=== PATIENT | male | born 1940 | race Caucasian/White ===

== ENCOUNTER → 2020-04-13 09:41 | Outpatient (BNVA) | payer MEDICARE, SELFPAY | PROVIDERS: Visit Provider Orthopaedic Surgery | DX: M65.30 Trigger finger, unspecified finger (principal) | CPT/HCPCS: 87635 ==

== ENCOUNTER 2020-04-19 07:53 | Day surgery (SDC) | payer MEDICARE, SELFPAY ==
[2020-04-18 13:28] VITALS: BMI 25.1
[2020-04-19 08:09] VITALS: BP 119/67; PULSE 77; RESP 18; TEMP 37.1; O2SAT 98
[2020-04-19 08:28] LABS: Glucose Point of Care 143 mg/dL (70-110)
[2020-04-19] MEDS: sodium chloride 0.9% 1,000 ML 30 ML IV (08:29)
--- NOTE | 2020-04-19 09:46 | ANES.PREANE2 ---
Pre-Anesthetic Assessment Pre-Anesthetic Assessment: Height/Weight: Height 1.75 m Weight 77.111 kg Temp Pulse Resp BP Pulse Ox 98.7 F 77 18 119/67 98 04/19/20 08:09 04/19/20 08:09 04/19/20 08:09 04/19/20 08:09 04/19/20 08:09 Preop Diagnosis: Trigger finger right index and long fingers Proposed Procedure: Operation Date: 04/19/20 09:50 Proposed Procedures p Right index and long finger trigger digit release 49991 M65.30(Right) - Gabino Quintero MD Was Beta Nuris taken within 24 hours: Yes Last intake: Intake Last Liquid Date 04/18/20 Last Liquid Time 18:00 Last Solid Date 04/18/20 Last Solid Time 18:00 Social: Social History: No alcohol and No tobacco Exam: Pre-Anes Outpt Exam: alert, oriented x 3, clear to auscultation bilaterally and regular rate & rhythm Airway: Submandibular: WNL Cervical ROM: WNL MP: 2 Dentition: Full CV/HEM: CV/HEM: CAD and HTN Anesthetic Plan: ASA status: 3 Anesthesia: MAC and Regional (specify below) (Ella tomlinson) Risk of > 500 ml blood loss (7ml/kg in children): No Meds/Allergies Current Medications: Current Medications Generic Name Dose Route Start Last Admin Trade Name Freq PRN Reason Stop Dose Admin Sodium Chloride 1,000 mls @ 30 ml s/hr 04/19/20 08:00 04/19/20 08:29 Sodium Chloride 0.9% IV 04/20/20 07:59 30 mls/hr .Q24H MARIUM Administration PFSH Anesthesia PFSH: Social History Smoking and tobacco status: never smoked Alcohol intake: never Data Anesthesia Other Labs: Laboratory Results - last 48 hr 04/19/20 08:25 POC Glucose 143 H Cardiac Studies: No Data to Display
--- NOTE | 2020-04-19 11:08 | W.PM.OPSUD ---
Surgery/Procedure H&P Update DATE OF PROCEDURE: April 19, 2020 DATE H&P PERFORMED: 04/10/20 PREOP DIAGNOSIS: Trigger finger right index and long fingers PLANNED PROCEDURE: Operation Date: 04/19/20 09:50 Proposed Procedures p Right index and long finger trigger digit release [id number] M65.30(Right) - Gabino Quintero MD
[2020-04-19 11:58] VITALS: BP 112/66; PULSE 76; RESP 16; TEMP 36.1; O2SAT 100
--- NOTE | 2020-04-19 12:00 | PM.OP ---
Operative Report Date of procedure: April 19, 2020 Pre-op Diagnosis: Trigger finger right index and long fingers Post-op diagnosis: same Post-op Findings: Same Procedure Done: Right index and right long trigger finger release Pathology: none sent Surgeon: Gabino Quintero Anesthesia: Nerve Block (Cano Martin Pena block) Estimated blood loss (mL): 2 Tourniquet time (min): 20 Findings: Thickening and degeneration was seen about the A1 sam of the index finger. No particular abnormalities were identified about the long finger A1 sam. Condition: stable Disposition: same day Procedure: The patient's hand was prepped in the usual fashion. A timeout was performed. A transverse incision was made over the right long finger at the level of a 1 sam in the palm over a distance of approximately a centimeter and a half. Under loupe magnification blunt dissection was accomplished down to the A1 sam. With adequate visualization a scalpel was used to divide the central 8 mm of that structure. Blunt scissors were then used to extend the release approximately 5 mm proximally and 5 mm distally. nsverse incision was made over the index long finger at the level of a 1 sam in the palm over a distance of approximately a centimeter and a half. Under loupe magnification blunt dissection was accomplished down to the A1 sam. With adequate visualization a scalpel was used to divide the central 8 mm of that structure. Blunt scissors were then used to extend the release approximately 5 mm proximally and 5 mm distally. Tendons were pulled the road and inspected to assure there health. Skin edges were infiltrated with 4 cc of 0.5%n Marcaine over each incision.. The skin edges were closed with 3-0 Prolene compressive dressings were applied.
[2020-04-19 12:30] VITALS: BP 123/76; PULSE 71; RESP 18; O2SAT 98
--- NOTE | 2020-04-19 16:53 | ANE.PACU2 ---
Inpatient post-anesthesia follow up: Airway intact: Yes Vital signs: Temperature 97 F Pulse Rate 71 Respiratory Rate 18 Blood Pressure 123/76 Pulse Oximetry 98 Oxygen Delivery Me thod Room Air Oxygen Flow Rate Fraction of Inspir ed Oxygen Hydration adequate: Yes Nausea and vomiting: No Pain level: 1 Mental status: Baseline
== END 2020-04-19 12:37 | disposition home or self-care (01) ==
PROVIDERS: Visit Provider Orthopaedic Surgery
PROC: (CPT 26055; principal; 2020-04-19 09:50)
DX: M65.321 Trigger finger, right index finger (principal); M65.331 Trigger finger, right middle finger; I25.10 Atherosclerotic heart disease of native coronary artery without angina pectoris; I10 Essential (primary) hypertension
CPT/HCPCS: 26055 ×2; 12345; 36416; 82962; J0690; J3010; J3490; J7030

== ENCOUNTER 2021-08-29 16:57 | Emergency (ER) | payer MEDICARE, SELFPAY ==
[2021-08-29 17:05] VITALS: BP 127/66; PULSE 78; RESP 14; TEMP 36.8; O2SAT 97
--- NOTE | 2021-08-29 17:20 | USR_ITS ---
PROCEDURE INFORMATION: Exam: US Abdomen, Limited; Right Upper Quadrant Exam date and time: 08/29/2021 5:39 PM Age: 81 years old Clinical indication: Abdominal pain; Additional info: Abnormal imaging TECHNIQUE: Imaging protocol: Real time ultrasound of the abdomen with image documentation. Limited exam focused on the right upper quadrant. COMPARISON: CT abdomen pelvis w con* [id number] 08/29/2021 12:18 PM FINDINGS: Liver: Liver is normal size and shows normal uniform echogenicity. There is no focal abnormality within the liver. Gallbladder: There are multiple gallstones in the gallbladder. There is no gallbladder wall thickening or pericholecystic fluid. Gallbladder wall measures 2 mm in thickness. Biliary ducts: Common bile duct measures 6 mm. Pancreas: Visualized portions of the pancreas are unremarkable. Right kidney: Right kidney is normal size with normal cortical thickness and echogenicity. There is no hydronephrosis or focal abnormality identified. Right kidney measures 4.7 x 5.6 x 11.0 cm. Aorta: Abdominal aorta has a normal diameter without evidence of aneurysm. Inferior vena cava: IVC is unremarkable. Portal venous: Flow in the portal vein is in the normal direction. US/US gall bladder [id number] IMPRESSION: Cholelithiasis
[2021-08-29 18:42] LABS: Basophils % 0.3 %; Eosinophils # 0.2 10^3/uL (0.0-0.8); Eosinophils % 1.9 %; Hematocrit 44.8 % (42.0-52.0); Hemoglobin 14.9 g/dL (11.7-16.6); Lymphocytes # 0.4 10^3/uL (0.8-4.8); Lymphocytes % 4.8 %; Mean Corpuscular HGB Conc 33.3 g/dL (30.0-36.0); Mean Corpuscular Hemoglobin 30.8 pg (28.0-34.0); Mean Corpuscular Volume 92.6 fl (80-94); Mean Platelet Volume 9.2 fL (7.4-10.4); Monocytes # 0.3 10^3/uL (0.2-0.9); Monocytes % 3.6 %; Neutrophils # 8.22 10^3/uL (1.8-7.7); Neutrophils % 88.9 %; Nucleated Red Blood Cells % 0 %; Platelet Count 154 10^3/cmm (130-400); Red Blood Count 4.84 10^6/uL (4.1-5.3); Red Cell Distribution Width 12.5 % (12.1-15.1); White Blood Count 9.3 10^3/uL (4.0-10.0)
[2021-08-29 19:30] LABS: Alanine Aminotransferase 180 U/L (0-41); Albumin Level 4.4 g/dL (3.5-5.2); Alkaline Phosphatase 116 IU/L (40-130); Aspartate Amino Transferase 35 U/L (0-40); Blood Urea Nitrogen 35 mg/dL (8-23); Calcium 8.9 mg/dL (8.5-10.5); Carbon Dioxide 26 mmol/L (22-29); Chloride 96 mmol/L (98-107); Globulin 2.9 g/dL (1.3-4.6); Glucose 124 mg/dL (65-115); Lipase 42 U/L (13-60); Osmolality Calculated 291 mOsm/kg (285-295); Sodium 136 mmol/L (136-145); Total Bilirubin 1.4 mg/dL (0.15-1.2); Total Protein 7.3 g/dL (6.6-8.7)
[2021-08-29 19:57] VITALS: BP 156/56; PULSE 68; O2SAT 95
--- NOTE | 2021-08-29 20:02 | ED_ITS ---
HPI - Abdominal Pain General: Chief Complaint: Abdominal Pain Stated Complaint: abd pain Time Seen by Provider: 08/29/21 20:02 History of Present Illness: Patient on Thursday had some onset of severe abdominal pain radiating to his back. Patient had persistent pain and was seen at his primary care office in [place] in which they took blood work and a CT scan. After having the blood work and CT scan done yesterday they contacted him today recommending he be evaluated in the ER for further treatment and possible removal of the gallbladder. Review of the records it was noted patient's AST and ALT were in the 500s. Bilirubin was elevated. CT scan was not available for review. Patient here appears nontoxic. Patient appeared in no pain at this time. Patient reports pain is improved over the last 2 days. Associated Symptoms: Reports nausea Review of Systems General: Reports: 10 or more systems reviewed and unremarkable except in HPI and below Card: Denies: chest pain Resp: Denies: dyspnea GI: Reports: abdominal pain and nausea Skin/Breast: Denies: rash PFSH ED PFSH: Social History Smoking and tobacco status: never smoked Alcohol intake: never Physical Exam Const: COMMON NORMALS: alert HENMT: COMMON NORMALS: normocephalic HEAD & SCALP: normocephalic Neck/C-Spine: COMMON NORMALS: full ROM Resp: COMMON NORMALS: normal respiratory effort and clear to auscultation bilaterally AUSCULTATION: clear to auscultation bilaterally Cardio: COMMON NORMALS: regular rate RATE: regular rate GI: COMMON NORMALS: Soft to palpation AUSCULTATION: Yes normoactive bowel sounds PALPATION: Yes Soft to palpation and No Tenderness to palpation present (GI) Extremity: COMMON NORMALS: normal to inspection Neuro: SENSORIUM/ORIENTATION: Yes alert Skin: COMMON NORMALS: no rashes or lesions noted GENERAL SKIN EXAM: no rashes or lesions noted Course Vital Signs: Vital signs: Vital Signs Temperature 98.3 F 08/29/21 17:05 Pulse Rate 78 08/29/21 17:05 Respiratory Rate 14 08/29/21 17:05 Blood Pressure 127/66 08/29/21 17:05 Pulse Oximetry 97 08/29/21 17:05 MDM - Abdominal Pain Medical Decision Making Patient presents today for concerns of abnormal labs and x-rays that were done at outpatient facility. On exam patient is in no pain. Abdomen soft and nontender. Bowel sounds are present. Skin is warm and dry. Vital signs are normal. Differential diagnosis includes cholecystitis, cholelithiasis, pancreatitis. Laboratory values today were unremarkable. Patient did have a mild bump in his bilirubin and his alkaline phosphatase was elevated. Ultrasound of the gallbladder noted gallstones without any signs of cholecystitis or obstruction. I believe patient probably had passed a gallstone which caused his brief elevation in his white count and liver enzymes. I recommended follow-up with surgery for further evaluation and treatment. Patient and his said that they would follow-up with [facility] in [place] through their primary care. Reviewed recommendations for need for return to the ER with patient who reported understanding. Lab Data : 08/29/21 18:30 08/29/21 18:30 Labs/Radiology: Radiology Impressions Gallbladder Ultrasound 08/29/21 17:20 IMPRESSION: Cholelithiasis Laboratory Results WBC 9.3 10^3/uL (4.0-10.0) 08/29/21 18:30 RBC 4.84 10^6/uL (4.1-5.3) 08/29/21 18:30 Hgb 14.9 g/dL (11.7-16.6) 08/29/21 18:30 Hct 44.8 % (42.0-52.0) 08/29/21 18:30 MCV 92.6 fl (80-94) 08/29/21 18:30 MCH 30.8 pg (28.0-34.0) 08/29/21 18:30 MCHC 33.3 g/dL (30.0-36.0) 08/29/21 18:30 RDW 12.5 % (12.1-15.1) 08/29/21 18:30 Plt Count 154 10^3/cmm (130-400) 08/29/21 18:30 MPV 9.2 fL (7.4-10.4) 08/29/21 18:30 Neut % (Auto) 88.9 % 08/29/21 18:30 Lymph % (Auto) 4.8 % 08/29/21 18:30 Pershing % (Auto) 3.6 % 08/29/21 18:30 Eos % (Auto) 1.9 % 08/29/21 18:30 Baso % (Auto) 0.3 % 08/29/21 18:30 Neut # (Auto) 8.22 10^3/uL (1.8-7.7) H 08/29/21 18:30 Lymph # (Auto) 0.4 10^3/uL (0.8-4.8) L 08/29/21 18:30 Pershing # (Auto) 0.3 10^3/uL (0.2-0.9) 08/29/21 18:30 Eos # (Auto) 0.2 10^3/uL (0.0-0.8) 08/29/21 18:30 Baso # (Auto) 0.0 10^3/uL (0.0-0.1) 08/29/21 18:30 Nucleated RBC % (auto) 0 % 08/29/21 18:30 Nucleated RBCs # 0.0 /100WBC 08/29/21 18:30 Sodium 136 mmol/L (136-145) 08/29/21 18: Potassium 4.0 mmol/L (3.5-5.1) 08/29/21 18:30 Chloride 96 mmol/L (98-107) L 08/29/21 18:30 Carbon Dioxide 26 mmol/L (22-29) 08/29/21 18:30 Anion Gap 18.0 (5-19) 08/29/21 18:30 BUN 35 mg/dL (8-23) H 08/29/21 18:30 Creatinine 1.2 mg/dL (0.7-1.2) 08/29/21 18:30 GFR Calculation Not Reportable 08/29/21 18: Glucose 124 mg/dL (65-115) H 08/29/21 18:30 Calculated Osmolality 291 mOsm/kg (285-295) 08/29/21 18:30 Calcium 8.9 mg/dL (8.5-10.5) 08/29/21 18:30 Total Bilirubin 1.4 mg/dL (0.15-1.2) H 08/29/21 18:30 AST 35 U/L (0-40) 08/29/21 18:30 ALT 180 U/L (0-41) H 08/29/21 18:30 Alkaline Phosphatase 116 IU/L (40-130) 08/29/21 18:30 Total Protein 7.3 g/dL (6.6-8.7) 08/29/21 18:30 Albumin 4.4 g/dL (3.5-5.2) 08/29/21 18:30 Globulin 2.9 g/dL (1.3-4.6) 08/29/21 18:30 Lipase 42 U/L (13-60) 08/29/21 18:30 Discharge Plan Discharge Patient Disposition: Home Clinical Impression: Cholelithiases Qualifiers: Cholelithiasis location: gallbladder Cholecystitis presence: without cholecystitis Biliary obstruction: without biliary obstruction Qualified Code(s): K80.20 - Calculus of gallbladder without cholecystitis without obstruction Condition: Stable Prescriptions: No Action acetaminophen [Tylenol] 325 mg capsule 325 mg PO QID PRN (Reason: Pain) 0RF aspirin 81 mg tablet,delayed release (DR/EC) 81 mg PO DAILY 0RF glipizide 10 mg tablet 10 mg PO BID 0RF levothyroxine [Synthroid] 25 mcg tablet 25 mcg PO DAILY 0RF losartan 25 mg tablet 25 mg PO DAILY 0RF metoprolol succinate 25 mg tablet extended release 24 hr 25 mg PO DAILY 0RF nitroglycerin 0.4 mg tablet, sublingual 0.4 mg sublingual Q5M PRN (Reason: Chest Pain) 0RF Rx Instructions: do not exceed 3 doses per episode omega-3 fatty acids [Fish Oil Concentrate] 1,000 mg capsule 1,000 mg PO DAILY 0RF pioglitazone 15 mg tablet 15 mg PO DAILY 0RF simvastatin 40 mg tablet 40 mg PO DAILY 0RF warfarin 5 mg tablet 5 mg PO DAILY 0RF bumetanide 0.5 mg tablet 0.5 mg PO BID 0RF [place] 5-325 mg tablet 1 tab PO Q4H PRN (Reason: pain) Qty: 20 0RF Discharge Orders: Discharge ED (Routine); Ordered 08/29/21 Ordered By: Gaudencio Cherry Discharge Diet: Usual diet Discharge Activity: Increase activity as tolerated Patient Instructions: Gallstones (ED) Activity Restrictions/Additional Instructions: Light diet. Drink plenty of water. Follow-up with surgeon for further evaluation and treatment. Return to ER for worsening pain, fever, blood in vomit or stool. Coding Level of Care Code ED Instructional Support Services Director for Frederic Mora
[2021-08-29 20:18] VITALS: BP 137/58; PULSE 64; RESP 18; O2SAT 98
== END 2021-08-29 20:42 | disposition home or self-care (01) ==
PROVIDERS: Emergency Provider Nurse Practitioner Family
DX: K80.20 Calculus of gallbladder without cholecystitis without obstruction (principal); Z79.01 Long term (current) use of anticoagulants; Z79.84 Long term (current) use of oral hypoglycemic drugs; Z79.82 Long term (current) use of aspirin
CPT/HCPCS: 76705; 80053; 83690; 85025; 99283

== ENCOUNTER → 2024-04-12 10:06 | Outpatient (BNVA) | payer MEDICARE, SELFPAY | PROVIDERS: PCP Family Medicine; Visit Provider Student in an Organized Health Care Education/Training Program | DX: M65.341 Trigger finger, right ring finger (principal) | CPT/HCPCS: 20600; 73130; 99204; J3301; J3490 ==